=== PATIENT | male | born 1990 | race African-American/Black ===

== ENCOUNTER 2022-02-21 08:48 | Emergency (ER) | payer SELFPAY ==
[2022-02-21] MEDS ORDERED: Aspirin Chewable 81 MG TAB ONE (09:02)
[2022-02-21] MEDS ORDERED: Nitroglycerin 0.4 MG TAB 1 EACH ONE (09:02)
[2022-02-21] MEDS ORDERED: Mag-Al Plus 1200 MG/1200 MG/120 MG/30 ML UDCUP ONE (09:17)
[2022-02-21] MEDS ORDERED: Lidocaine Viscous Sol 2% 15 ml UD Cup ONE (09:17)
[2022-02-21 09:26] LABS: Hemoglobin 16.5 g/dL (14.0-18.0); Mean Corpuscular HGB CONC 31.2 g/dL (32.0-36.0); Mean Corpuscular Hemoglobin 28.7 pg (27.0-31.0); Mean Corpuscular Volume 92.2 fL (78.0-98.0); Mean Platelet Volume 10.7 fL (7.4-10.4); Platelet Count 382 thou/uL (130-400); RBC Distribution Width 11.1 % (11.5-14.5); Red Blood Cell (RBC) Count 5.74 mill/uL (4.70-6.10)
[2022-02-21 09:44] LABS: ALT (SGPT) 17 U/L (8-55); AST (SGOT) 22 U/L (5-34); Alkaline Phosphatase 104 U/L (40-110); Anion Gap 17 mmol/L (10-20); BUN (Urea Nitrogen) 19 mg/dL (8.9-20.6); Bilirubin, Total 1.4 mg/dL (0.2-1.2); Calc. Creatinine Clearance 0 mL/min (70-130); Calcium 9.7 mg/dL (7.8-10.44); Carbon Dioxide 25 mmol/L (22-29); Chloride 95 mmol/L (98-107); Estimated GFR 65; Globulin 3.2 g/dL (2.4-3.5); Glucose 64 mg/dL (70-105); Lipase 10 U/L (8-78); Protein, Total 8.2 g/dL (6.0-8.3); Sodium 133 mmol/L (136-145)
[2022-02-21] MEDS ORDERED: Famotidine/PF 20 mg/2ml Vial ONE (09:51)
[2022-02-21] MEDS ORDERED: Lactated Ringer's 1,000 ML ONE (09:51)
[2022-02-21 10:03] LABS: Band 2 % (5-11); Lymphocytes 37 % (21-51); MDiff Complete? YES; Manual Diff?? YES; Neutrophil 54 % (42-75)
[2022-02-21 10:04] LABS: Eosinophils 1 % (0-10); Monocytes 5 % (0-10); Platelet Morphology Comment Appears Adequate
== END 2022-02-21 11:00 | disposition home or self-care (01) ==
LOC: MADERS 08:48
DX: R07.2 Precordial pain (principal); N17.9 Acute kidney failure, unspecified; F17.210 Nicotine dependence, cigarettes, uncomplicated; Z20.822 Contact with and (suspected) exposure to COVID-19
CPT/HCPCS: 36415; 36416; 71045; 80053; 83690; 83880; 84484; 85025; 93005; 94760; 96361; 96374; J7120; S0028; U0003; U0005